=== PATIENT | female | born 1945 | race Caucasian/White ===

== ENCOUNTER → 2018-04-08 | Outpatient (CLI) | payer MEDICARE, MEDICAID ==
[2015-03-31 14:31] VITALS: BMI 26.6
[~2018-04-08] MED LIST: ACE3 PO; ACET-2007 PO; ALP5 PO; ALPR-1 PO; ALPR-445 PO; ALPR-448 PO; ALPR-459 PO; ASC500 PO; ASPI-1471 PO; ASPI-715 PO; ATOR20TA65 PO; CAR3.125 PO; CAR6.25 PO; CEP500 PO; CHOL200074 PO; CHOL400C10 PO; CLO75 PO; DOCU-202 PO; FLAX100042 PO; FLU45SYR17 IM; FURO-1 PO; FURO-45 PO; IBU800 PO; IBUP800T37 PO; LIS10 PO; LISI-362 PO; LISI5TAB25 PO; MOM PO; OMEP-125 PO; OXYGEN INH; PNEU0.5D3 IM; POLY17PO21 PO; POTA10CA61 PO; POTA20TA85 PO; RAN150 PO; RANI-318 PO; ROS10 PO; TRA50 PO; TRAM-420 PO; VITA-324 PO; ZOST19404 SQ; [UNRECOGNIZED DRUG - REMARK]
[2018-04-08 15:08] LABS: PLATELET COUNT, AUTOMATED 182 K/uL (150-450)
[2018-04-08 15:21] LABS: LDL CHOLESTEROL 139 mg/dl
== END ==
LOC: LAB 14:37
PROVIDERS: ATTEND Nurse Practitioner Family
DX: I50.9 Heart failure, unspecified (principal); I10 Essential (primary) hypertension; E78.5 Hyperlipidemia, unspecified
CPT/HCPCS: 36415; 82040; 82247; 82310; 82374; 82435; 82465; 82565; 82947; 83718; 83880; 84075; 84132; 84155; 84295; 84443; 84450; 84460; 84478; 84520; 85025

== ENCOUNTER → 2018-04-26 | Outpatient (CLI) | payer MEDICARE, MEDICAID ==
[2015-03-31 14:31] VITALS: BMI 26.6
[~2018-04-26] MED LIST changes: +RANI-366 PO
== END ==
LOC: LAB 13:20
PROVIDERS: ATTEND Nurse Practitioner Family
DX: I10 Essential (primary) hypertension (principal); I50.9 Heart failure, unspecified
CPT/HCPCS: 36415; 82310; 82374; 82435; 82565; 82947; 83880; 84132; 84295; 84520

== ENCOUNTER → 2018-11-01 | Outpatient (CLI) | payer MEDICARE, MEDICAID ==
[2015-03-31 14:31] VITALS: BMI 26.6
[~2018-11-01] MED LIST changes: +FURO20TA19 PO; +IBUP600T22 PO; +LISI20TA29 PO; +POLY17PO11 PO; -POLY17PO21 PO
[2018-11-01 15:03] LABS: PLATELET COUNT, AUTOMATED 224 K/uL (150-450)
--- NOTE | 2018-11-01 16:30 | RADIOLOGY IMAGING REPORT ---
FACILITY: [facility] PATIENT NAME: Barbara Roberson : 1945 MR: [id number] V: [id number] EXAM DATE: ORDERING PHYSICIAN: OKSANA MUÑOZ TECHNOLOGIST: Location: [facility] Patient: Barbara Roberson : 1945 Visit/Account:[id number] Date of Sevice: 11/01/2018 Exam type: HIP RIGHT History: Right hip pain Comparison: March 23, 2015. Findings: Two views of the right hip are submitted.. There is no evidence of acute fracture-dislocation or sig nificant arthritic change involving the right hip. No lytic or blastic bone lesion is seen IMPRESSION: 1. No acute osteoarticular abnormality the right hip is seen Report Dictated By: Becka Yang MD at 11/01/2018 4:25 PM Report E-Signed By: Becka Yang MD at 11/01/2018 4:26 PM WSN:[email or web address]
--- NOTE | 2018-11-01 16:37 | RADIOLOGY IMAGING REPORT ---
FACILITY: [facility] PATIENT NAME: Barbara Roberson : 1945 MR: [id number] V: [id number] EXAM DATE: ORDERING PHYSICIAN: OKSANA MUÑOZ TECHNOLOGIST: Location: [facility] Patient: Barbara Roberson : 1945 Visit/Account:[id number] Date of Sevice: 11/01/2018 Exam type: CHEST PA LAT History: hypoxia Comparison: February 15, 2015. Findings: There is no evidence of acute appearing infiltrates, pleural effusions or overt pulmonary edema the c ardiac silhouette is normal in size is a gentle scoliosis of the thoracolumbar spine with mild spondy lotic changes IMPRESSION: 1. No acute cardiopulmonary process is seen Report Dictated By: Becka Yang MD at 11/01/2018 4:26 PM Report E-Signed By: Becka Yang MD at 11/01/2018 4:33 PM WSN:[email or web address]
== END ==
LOC: LAB 14:29
PROVIDERS: ATTEND Nurse Practitioner Family
DX: I50.9 Heart failure, unspecified (principal); I10 Essential (primary) hypertension; E78.5 Hyperlipidemia, unspecified; R09.02 Hypoxemia; M25.551 Pain in right hip
CPT/HCPCS: 36415; 71046; 82040; 82247; 82310; 82374; 82435; 82565; 82947; 83880; 84075; 84132; 84155; 84295; 84443; 84450; 84460; 84520; 85025; 85379

== ENCOUNTER 2018-11-02 13:30 | Inpatient (IN) | payer MEDICARE, MEDICAID ==
[~2018-11-02] VITALS: Ht 160 cm; Wt 62.7 kg
[~2018-11-02 13:30] MED LIST changes: -FURO20TA19 PO
[2018-11-02] MEDS ORDERED: ASPIRIN 325 MG TAB PO ONE (13:55)
[2018-11-02 14:06] LABS: PLATELET COUNT, AUTOMATED 213 K/uL (150-450)
--- NOTE | 2018-11-02 14:12 | ER Report ---
History and Physical Time Seen By MD: 14:00 Hx. of Stated Complaint: SOB and cough x 2 weeks, elevated dimer at MD[facility] yesterday; 72% room air sat HPI/ROS CHIEF COMPLAINT: Dyspnea HISTORY OF PRESENT ILLNESS: 73-year-old female with history of CHF, CVA, remote IA, presents with dyspnea times one week. She initially had nonproductive cough, dyspnea on exertion, that she states has actually slightly improved, however she was seen yesterday in her clinic and noted to have a pulse ox of 70%, but refused to come to the emergency department. Today she states that symptoms are slightly improved but she decided to come for further evaluation. She has orthopnea though states that symptoms are improved when she lies on her left side and does not sleep on multiple pillows. She has chronic lower extremity edema but states that this has been well-controlled and is actually improved from normal. She notes breathing restriction though denies chest pressure or pain. She denies fever, chills, nausea, vomiting, abdominal pain, change in medications, sick contacts, recent travel REVIEW OF SYSTEMS: Constitutional: No fever, no chills. Eyes: No discharge. ENT: No sore throat. Cardiovascular: No chest pain, no palpitations. Respiratory: above Gastrointestinal: No abdominal pain, no vomiting. Genitourinary: no dysuria Musculoskeletal: No back pain. Skin: No rashes. Neurological: No headache. Remainder of the 14 system rev: Yes Allergies: Coded Allergies: No Known Allergies (Verified Allergy, Mild, 02/15/15) Home Meds Active Scripts Alprazolam 0.25 Mg Tab (XANAX 0.25 MG TAB) 0.25 Mg Tablet, 1 TAB PO QHS PRN for INSOMNIA, #10 TAB 1 Refill Prov:OKSANA MUÑOZ APRNP-C 11/01/18 Ibuprofen (IBUPROFEN) 600 Mg Tablet, 1 TAB PO BID, #180 TAB 1 Refill Prov:OKSANA MUÑOZ APRNP-C 11/01/18 Lisinopril (LISINOPRIL) 20 Mg Tablet, 1 TAB PO QDAY, #90 TAB 1 Refill Prov:OKSANA MÑUOZ APRN METAL CUT OFF SAW OPERATOR-C 11/01/18 Ranitidine Hcl (ZANTAC) 150 Mg Tablet, 1 TAB PO DAILY, #90 TAB 1 Refill Prov:OKSANA MUÑOZ APRN-C 11/01/18 Carvedilol (CARVEDILOL) 6.25 Mg Tab, 1 TAB PO BID, #180 TAB 1 Refill Prov:OKSANA MUÑOZ APRNP-C 11/01/18 Tramadol Hcl (TRAMADOL HCL) 50 Mg Tablet, 1 TAB PO Q6H PRN for PAIN, #120 TAB 0 Refills Prov:OKSANA MUÑOZ APRN-C 10/12/18 Potassium Chloride (KLOR-CON M20) 20 Meq Tab.er.prt, 1 TAB PO QDAY, #30 TAB 5 Refills Prov:OKSANA MUÑOZ APRN-C 05/04/18 Furosemide (FUROSEMIDE) 20 Mg Tablet, 1.5 TAB PO DAILY, #135 TAB 4 Refills Prov:OKSANA MUÑOZ APRN-C 04/26/18 [Mailcarrier letter] No Conflict Check Prov:OKSANA MUÑOZ APRN-C 04/08/18 Acetaminophen (MAPAP) 325 Mg Tab, 650 MG PO Q6H PRN for PAIN OR FEVER 100 OR GREATER, #0 Prov:HERMELINDA GILL MD 04/03/15 Reported Medications Cholecalciferol (Vitamin D3) (VITAMIN D-3) 2,000 Unit Capsule, 5000 UNIT PO, CAPSULE 03/23/15 Aspirin (ASPIR 81) 81 Mg Tablet.dr, 81 MG PO QDAY, TAB 03/23/15 Discontinued Scripts Lisinopril (LISINOPRIL) 10 Mg Tablet, 1 TAB PO QDAY, #90 TAB 3 Refills Prov:OKSANA MUÑOZ APRNP-C 04/26/18 Ibuprofen (IBUPROFEN) 800 Mg Tablet, 1 TAB PO TIDCF PRN for PAIN, #270 TAB 1 Refill Prov:OKSANA MUÑOZ APRN-C 04/08/18 Reviewed Nurses Notes: Yes Old Medical Records Reviewed: Yes Hx Smoking: Yes Smoking Status: Former Smoker Exposure to Second Hand Smoke?: No Hx Substance Use Disorder: No Hx Alcohol Use: No Constitutional Vital Sign - Last 24 Hours 11/02/18 11/02/18 11/02/18 11/02/18 13:41 13:44 13:45 13:50 Pulse 93 91 Resp 18 B/P (MAP) 178/101 (126) 178/101 Pulse Ox 72 91 O2 Delivery Room Air Nasal Cannula O2 Flow Rate 4 4.0 11/02/18 11/02/18 11/02/18 11/02/18 14:00 14:15 14:30 14:30 Temp 98.2 Pulse 94 Resp 22 8 18 B/P (MAP) 182/99 (126) 161/95 (117) Pulse Ox 92 93 87 O2 Delivery Nasal Cannula O2 Flow Rate 4 11/02/18 11/02/18 11/02/18 11/02/18 14:35 14:50 15:00 15:05 Pulse 91 91 89 Resp 12 14 16 B/P (MAP) 164/95 (118) Pulse Ox 93 93 92 O2 Delivery Nasal Cannula Nasal Cannula Nasal Cannula O2 Flow Rate 4 4 4 11/02/18 11/02/18 11/02/18 11/02/18 15:10 15:25 15:30 15:40 Pulse 86 99 89 Resp 29 17 19 B/P (MAP) 175/126 (142) Pulse Ox 92 93 O2 Delivery Nasal Cannula Nasal Cannula O2 Flow Rate 4 4 11/02/18 11/02/18 11/02/18 11/02/18 15:45 16:00 16:15 16:30 Pulse 97 92 ??? 86 Resp 21 26 22 17 B/P (MAP) 179/86 (117) 179/89 (119) Pulse Ox 89 85 89 O2 Delivery Nasal Cannula Nasal Cannula O2 Flow Rate 3 3 11/02/18 11/02/18 11/02/18 16:45 17:00 17:15 Pulse 95 95 97 Resp 15 B/P (MAP) 177/99 (125) Pulse Ox 80 O2 Delivery Nasal Cannula O2 Flow Rate 3.5 Physical Exam General Appearance: The patient is alert, has no immediate need for airway protection and no signs of toxicity. Eyes: Pupils equal and round no pallor or injection. ENT, Mouth: Mucous membranes are moist. Respiratory: There are no retractions, lungs are clear to auscultation. Pt pres ents with 02 70%, 93% on 4L, not on home 02 Cardiovascular: Regular rate and rhythm. no m/r/g Gastrointestinal: Abdomen is soft and non tender, no masses, bowel sounds normal. Neurological: alert, oriented Skin: Warm and dry, no rashes. Musculoskeletal: Extremities - bilateral lower extremity edema. 2+ pulses DIFFERENTIAL DIAGNOSIS: After history and physical exam differential diagnosis was considered for shortness of breath including but not limited to pulmonary infectious process, COPD, asthma, pulmonary embolus and congestive heart failure.chest pain including but not limited to myocardial ischemia, pericarditis pulmonary embolus, chest wall pain, pleural inflammation and pulmon sai infectious causes. Medical Decision Making Data Points Result Diagram: 11/02/18 1352 11/02/18 1352 Laboratory Hematology Test 11/02/18 13:52 11/02/18 14:28 11/02/18 14:47 Red Blood Count 5.38 M/uL (4.17-5.56) Mean Corpuscular Volume 90.9 fL (80.0-96.0) Mean Corpuscular Hemoglobin 29.5 pg (26.0-33.0) Mean Corpuscular Hemoglobin Concent 32.4 g/dL (32.0-36.0) Red Cell Distribution Width 13.6 % (11.5-14.5) Mean Platelet Volume 10.3 fL (7.2-11.1) Neutrophils (%) (Auto) 69.5 % (39.4-72.5) Lymphocytes (%) (Auto) 19.5 % (17.6-49.6) Monocytes (%) (Auto) 6.4 % (4.1-12.4) Eosinophils (%) (Auto) 3.8 % (0.4-6.7) Basophils (%) (Auto) 0.8 % (0.3-1.4) Nucleated RBC Relative Count (auto) 0.1 /100WBC Neutrophils # (Auto) 6.3 K/uL (2.0-7.4) Lymphocytes # (Auto) 1.8 K/uL (1.3-3.6) Monocytes # (Auto) 0.6 K/uL (0.3-1.0) Eosinophils # (Auto) 0.3 K/uL (0.0-0.5) Basophils # (Auto) 0.1 K/uL (0.0-0.1) Nucleated RBC Absolute Count (auto) 0.01 K/uL Prothrombin Time 13.2 seconds (12.0-14.4) Prothromb Time International Ratio 1.00 Activated Partial Thromboplast Time 29 seconds (23-35) Sodium Level 144 mmol/L (137-145) Potassium Level 3.5 mmol/L (3.5-5.0) Chloride Level 105 mmol/L (98-107) Carbon Dioxide Level 29 mmol/L (22-31) Blood Urea Nitrogen 26 mg/dl (7-18) Creatinine 0.80 mg/dl (0.52-1.04) Glomerular Filtration Rate Calc > 60.0 Random Glucose 101 mg/dl (75-110) Calcium Level 9.9 mg/dl (8.4-10.2) Total Bilirubin 0.6 mg/dl (0.2-1.3) Aspartate Amino Transf (AST/SGOT) 24 U/L (0-35) Alanine Aminotransferase (ALT/SGPT) 27 U/L (0-56) Alkaline Phosphatase 66 U/L (0-126) Troponin I < 0.012 ng/ml B-Type Natriuretic Peptide 852 pg/ml (0-100) Total Protein 7.6 g/dl (6.3-8.2) Albumin 4.2 g/dl (3.5-5.0) Blood Gas Puncture Site Left radial Blood Gas Patient Temperature 98.2 DEGREES Arterial Blood pH 7.40 (7.35-7.45) Arterial Blood Partial Pressure CO2 42 mmHg (32-37) Arterial Blood Partial Pressure O2 70 mmHg (60-80) Arterial Blood HCO3 26 mmol/L (20-26) Arterial Blood Oxygen Saturation 94 % (92-100) Arterial Blood Base Excess 2.0 mmol/L Chris Test Acceptable Oxygen Liters/Minute 37 Urine Color Yellow Urine Clarity Cloudy Urine pH 5.0 pH (4.8-9.5) Urine Specific [place] 1.024 Urine Protein 30 mg/dL (NEGATIVE) Urine Glucose (UA) Negative mg/dL (NEGATIVE) Urine Ketones Trace mg/dL (NEGATIVE) Urine Blood Small (NEGATIVE) Urine Nitrite Negative (NEGATIVE) Urine Bilirubin Negative (NEGATIVE) Urine Urobilinogen 2.0 mg/dL (0.2-1.9) Urine Leukocyte Esterase Trace (NEGATIVE) Urine RBC 30 /HPF (0-2/HPF) Urine WBC 485 /HPF (0-5/HPF) Urine Squamous Epithelial Cells Many /LPF (</=FEW) Urine Bacteria Few /HPF (NONE-FEW) Urine Mucus Few /HPF (NONE-FEW) Chemistry Test 11/02/18 13:52 11/02/18 14:28 11/02/18 14:47 White Blood Count 9.1 k/uL (4.5-11.0) Red Blood Count 5.38 M/uL (4.17-5.56) Hemoglobin 15.8 g/dL (12.0-16.0) Hematocrit 48.9 % (34.0-47.0) Mean Corpuscular Volume 90.9 fL (80.0-96.0) Mean Corpuscular Hemoglobin 29.5 pg (26.0-33.0) Mean Corpuscular Hemoglobin Concent 32.4 g/dL (32.0-36.0) Red Cell Distribution Width 13.6 % (11.5-14.5) Platelet Count 213 K/uL (150-450) Mean Platelet Volume 10.3 fL (7.2-11.1) Neutrophils (%) (Auto) 69.5 % (39.4-72.5) Lymphocytes (%) (Auto) 19.5 % (17.6-49.6) Monocytes (%) (Auto) 6.4 % (4.1-12.4) Eosinophils (%) (Auto) 3.8 % (0.4-6.7) Basophils (%) (Auto) 0.8 % (0.3-1.4) Nucleated RBC Relative Count (auto) 0.1 /100WBC Neutrophils # (Auto) 6.3 K/uL (2.0-7.4) Lymphocytes # (Auto) 1.8 K/uL (1.3-3.6) Monocytes # (Auto) 0.6 K/uL (0.3-1.0) Eosinophils # (Auto) 0.3 K/uL (0.0-0.5) Basophils # (Auto) 0.1 K/uL (0.0-0.1) Nucleated RBC Absolute Count (auto) 0.01 K/uL Prothrombin Time 13.2 seconds (12.0-14.4) Prothromb Time International Ratio 1.00 Activated Partial Thromboplast Time 29 seconds (23-35) Glomerular Filtration Rate Calc > 60.0 Calcium Level 9.9 mg/dl (8.4-10.2) Total Bilirubin 0.6 mg/dl (0.2-1.3) Aspartate Amino Transf (AST/SGOT) 24 U/L (0-35) Alanine Aminotransferase (ALT/SGPT) 27 U/L (0-56) Alkaline Phosphatase 66 U/L (0-126) Troponin I < 0.012 ng/ml B-Type Natriuretic Peptide 852 pg/ml (0-100) Total Protein 7.6 g/dl (6.3-8.2) Albumin 4.2 g/dl (3.5-5.0) Blood Gas Puncture Site Left radial Blood Gas Patient Temperature 98.2 DEGREES Arterial Blood pH 7.40 (7.35-7.45) Arterial Blood Partial Pressure CO2 42 mmHg (32-37) Arterial Blood Partial Pressure O2 70 mmHg (60-80) Arterial Blood HCO3 26 mmol/L (20-26) Arterial Blood Oxygen Saturation 94 % (92-100) Arterial Blood Base Excess 2.0 mmol/L Chris Test Acceptable Oxygen Liters/Minute 37 Urine Color Yellow Urine Clarity Cloudy Urine pH 5.0 pH (4.8-9.5) Urine Specific [place] 1.024 Urine Protein 30 mg/dL (NEGATIVE) Urine Glucose (UA) Negative mg/dL (NEGATIVE) Urine Ketones Trace mg/dL (NEGATIVE) Urine Blood Small (NEGATIVE) Urine Nitrite Negative (NEGATIVE) Urine Bilirubin Negative (NEGATIVE) Urine Urobilinogen 2.0 mg/dL (0.2-1.9) Urine Leukocyte Esterase Trace (NEGATIVE) Urine RBC 30 /HPF (0-2/HPF) Urine WBC 485 /HPF (0-5/HPF) Urine Squamous Epithelial Cells Many /LPF (</=FEW) Urine Bacteria Few /HPF (NONE-FEW) Urine Mucus Few /HPF (NONE-FEW) Coagulation Test 11/02/18 13:52 Prothrombin Time 13.2 seconds Prothromb Time International Ratio 1.00 Activated Partial Thromboplast Time 29 seconds Urinalysis Test 11/02/18 14:47 Urine Color Yellow Urine Clarity Cloudy Urine pH 5.0 pH (4.8-9.5) Urine Specific [place] 1.024 Urine Protein 30 mg/dL (NEGATIVE) Urine Glucose (UA) Negative mg/dL (NEGATIVE) Urine Ketones Trace mg/dL (NEGATIVE) Urine Blood Small (NEGATIVE) Urine Nitrite Negative (NEGATIVE) Urine Bilirubin Negative (NEGATIVE) Urine Urobilinogen 2.0 mg/dL (0.2-1.9) Urine Leukocyte Esterase Trace (NEGATIVE) Urine RBC 30 /HPF (0-2/HPF) Urine WBC 485 /HPF (0-5/HPF) Urine Squamous Epithelial Cells Many /LPF (</=FEW) Urine Bacteria Few /HPF (NONE-FEW) Urine Mucus Few /HPF (NONE-FEW) EKG/Imaging EKG Interpretation 12 lead EKG: Rhythm: normal sinus rhythm [place]: normal QRS: widened ST segments: TWI II, III, avF. Borderline st elevation v1-3 No STEMI; v1-3 elevations c/w LVH no sig change from prior Monitor Interpretation: Normal Sinus Rhythm ED Course/Re-evaluation ED Course Ms. Roberson presents with dyspnea, hypoxia, cough; findings most c/w fluid overload c/w chf, though not in overwhelming pulmonary edema. I evaluated pt's labs/findings; of note she had d dimer drawn yesterday that given age adjusted cutoff is negative (72 in this 73 yr old) and is significantly less than prior draws. She feels minimally symptomatically improved after IV diuresis, and while I considered dispo with home 02, she is reticent to use 02 at home, and refuses to leave with 02 tank. Therefore, she may benefit from further inpt diuresis and optimization of cardiac function. Decision to Disposition Date: Nov 02, 2018 Decision to Disposition Time: 17:51 Depart Departure Latest Vital Signs Vital Signs Date Time Temp Pulse Resp B/P (MAP) Pulse Ox O2 Delivery O2 Flow Rate FiO2 11/02/18 17:15 97 11/02/18 17:00 177/99 (125) 80 Nasal Cannula 3.5 11/02/18 16:45 15 11/02/18 14:30 98.2 Impression: Primary Impression: CHF exacerbation Additional Impression: Hypoxia Condition: Condition Unchanged Disposition: Admitted from ER Referrals: OKSANA MUÑOZ APRN METAL CUT OFF SAW OPERATOR-C (PCP) Problem Qualifiers Primary Impression: CHF exacerbation Heart failure type: unspecified Qualified Codes: I50.9 - Heart failure, unspecified TAIWO DE LUNA MD Nov 02, 2018 14:12
--- NOTE | 2018-11-02 14:34 | RADIOLOGY IMAGING REPORT ---
FACILITY: [facility] PATIENT NAME: Barbara Roberson : 1945 MR: [id number] V: [id number] EXAM DATE: ORDERING PHYSICIAN: TAIWO DE LUNA TECHNOLOGIST: Location: [facility] [place] Patient: Barbara Roberson : 1945 Visit/Account:[id number] Date of Sevice: 11/02/2018 Chest 2 views: HISTORY: Dyspnea. COMPARISON: 11/01/2018 FINDINGS: Frontal and lateral chest: Cardiomediastinal silhouette is within normal limits. There is prominence of the interstitial markings throughout the lungs, significantly more pronounced compared to previous. There is no focal consolidation or pleural effusion. No pneumothorax. Osseous structures are unremarkable for age. IMPRESSION: Increasing prominence of the interstitial markings, differential would include infectious or inflammatory process or possibly mild interstitial edema, clinically correlate. There is no radi ographic evidence of a focal pneumonia or overt congestive heart failure. Report Dictated By: Leah Hendrix MD at 11/02/2018 2:27 PM Report E-Signed By: Leah Hendrix MD at 11/02/2018 2:30 PM WSN:[email or web address]
[2018-11-02] MEDS ORDERED: FUROSEMIDE 20 MG/2 ML VIAL IVP ONE (14:55)
--- NOTE | 2018-11-02 16:13 | EKG ---
FACILITY: [facility] [place] PATIENT NAME: MELY GAUTHIER : [id number] MR: [id number] V: [id number] EXAM DATE: ORDERING PHYSICIAN: TAIWO DE LUNA TECHNOLOGIST: Test Reason : Blood Pressure : / mmHG Vent. Rate : 089 BPM Atrial Rate : 089 BPM P-R Int : 182 ms QRS Dur : 108 ms QT Int : 386 ms P-R-T Axes : 074 039 036 degrees QTc Int : 469 ms Normal sinus rhythm Possible Left atrial enlargement Left ventricular hypertrophy Cannot rule out Inferior infarct , age undetermined R wave progression consistent with an old ant/sep MN vs lead placement Upsloping ST elevation in V2-V3, so cannot rule out acute MN vs repolarization abnormality T flattning/inversion consistent with inferior ischemia Compared to previous: Now with worsening ST elevation of unclear significance Lateral T inversion has resolved Now with T inversion/flattening inferiorly Confirmed by HERMELINDA GILL ([id number]) on 11/02/2018 5:56:32 PM Referred By: Confirmed By:HERMELINDA GILL
[2018-11-02] MEDS ORDERED: ALPRAZolam 0.25 MG TAB PO PRN (17:30)
[2018-11-02 18:07] VITALS: BP 178/95
--- NOTE | 2018-11-02 18:21 | History & Physical ---
History of Present Illness History of Present Illness 73yo female with HFrEF and CAD who came to the ER for SOB. She has had congestion and SOB for the last week. The symptoms are improving. She stopped her own furosemide 2 days ago because she was peeing too much. She saw her PCP, yesterday, for a routine 6 month follow-up and was found to be newly hypoxic on RA and worsening LE edema. She refused to go to the ER. However, agreed to do some workup and had an increased BNP from baseline, mildly elevated D-Dimer (lower than her baseline). Today, she decided to get further evaluation in the ER. She denies worsening LE edema, cp, orthopnea, PND, nausea, vomiting, diarrhea, chills. In the ER, she was given 20mg of IV Lasix. History Problems: (1) HFrEF (heart failure with reduced ejection fraction) Status: Acute (2) HTN (hypertension) Status: Chronic (3) Hyperlipidemia Status: Acute (4) CAD (coronary artery disease) Status: Chronic (5) Chronic back pain Status: Chronic (6) Depression Status: Chronic (7) History of hysterectomy Status: Chronic (8) Former smoker Status: Chronic (9) CVD (cardiovascular disease) (10) History of fusion of cervical spine (11) History of tonsillectomy Home Meds Active Scripts Alprazolam 0.25 Mg Tab (XANAX 0.25 MG TAB) 0.25 Mg Tablet, 1 TAB PO QHS PRN for INSOMNIA, #10 TAB 1 Refill Prov:OKSANA MUÑOZ APRN-C 11/01/18 Ibuprofen (IBUPROFEN) 600 Mg Tablet, 1 TAB PO BID, #180 TAB 1 Refill Prov:OKSANA MUÑOZ APRN-C 11/01/18 Lisinopril (LISINOPRIL) 20 Mg Tablet, 1 TAB PO QDAY, #90 TAB 1 Refill Prov:OKSANA MUÑOZ APRN-C 11/01/18 Ranitidine Hcl (ZANTAC) 150 Mg Tablet, 1 TAB PO DAILY, #90 TAB 1 Refill Prov:OKSANA MUÑOZ APRN-C 11/01/18 Carvedilol (CARVEDILOL) 6.25 Mg Tab, 1 TAB PO BID, #180 TAB 1 Refill Prov:OKSANA MUÑOZ YAYO BAÑUELOSP-C 11/01/18 Tramadol Hcl (TRAMADOL HCL) 50 Mg Tablet, 1 TAB PO Q6H PRN for PAIN, #120 TAB 0 Refills Prov:OKSANA MUÑOZ APRN PUBLIC DEFENDER-C 10/12/18 Potassium Chloride (KLOR-CON M20) 20 Meq Tab.er.prt, 1 TAB PO QDAY, #30 TAB 5 Refills Prov:JOSHUAOKSANA FAIR APRN-C 05/04/18 Furosemide (FUROSEMIDE) 20 Mg Tablet, 1.5 TAB PO DAILY, #135 TAB 4 Refills Prov:OKSANA MUÑOZ YAYO EVERETT-C 04/26/18 [Mailcarrier letter] No Conflict Check Prov:JOSHUAEliseoOKSANA ARIAS YAYO EVERETT-C 04/08/18 Acetaminophen (MAPAP) 325 Mg Tab, 650 MG PO Q6H PRN for PAIN OR FEVER 100 OR GREATER, #0 Prov:HERMELINDA GILL MD 04/03/15 Reported Medications Cholecalciferol (Vitamin D3) (VITAMIN D-3) 2,000 Unit Capsule, 5000 UNIT PO, CAPSULE 03/23/15 Aspirin (ASPIR 81) 81 Mg Tablet.dr, 81 MG PO QDAY, TAB 03/23/15 Discontinued Scripts Lisinopril (LISINOPRIL) 10 Mg Tablet, 1 TAB PO QDAY, #90 TAB 3 Refills Prov:JOSHUAEliseoOKSANA ARIAS YAYO PUBLIC DEFENDER-C 04/26/18 Ibuprofen (IBUPROFEN) 800 Mg Tablet, 1 TAB PO TIDCF PRN for PAIN, #270 TAB 1 Refill Prov:JOSHUAEliseoOKSANA ARIAS YAYO EVERETT-C 04/08/18 Allergies: Coded Allergies: No Known Allergies (Verified Allergy, Mild, 02/15/15) Patient History: FH: dementia MOTHER FH: diabetes mellitus FATHER FH: heart attack MOTHER Other Social/Family Hx Lives alone. Quit smoking in 1996. No alcohol use. Hx Smoking: Yes Smoking Status: Former Smoker Exposure to Second Hand Smoke?: No Caffeine Intake: Coffee Caffeine/Cups Per Day: quit 1 month ago Hx Alcohol Use: No Hx Substance Use Disorder: No Social Drug Use: Never Review of Systems All Systems Reviewed/Normal: Yes, Except as Noted Exam Vital Signs Vital Signs Date Time Temp Pulse Resp B/P (MAP) Pulse Ox O2 Delivery O2 Flow Rate FiO2 11/02/18 15:40 89 19 93 Nasal Cannula 4 11/02/18 15:30 175/126 (142) 11/02/18 14:30 98.2 General Appearance: Alert, Awake, No Acute Distress Neuro: No Gross deficits Eyes: Other ENT: Moist Mucous Membranes Cardiovascular: Regular Rate and Rhythm, No JVD Respiratory: Clear to Auscultation GI: Abd Soft and Non-Tender Extremities: Edema (1-2+ pitting in shins to feet with erythema in ankles in feet while in the dependant position) Medical Decision Making Data Points Result Diagram: 11/02/18 1352 11/02/18 1352 Item Value Date Time B-Type Natriuretic Peptide 852 pg/ml H 11/02/18 1352 Troponin I < 0.012 ng/ml 11/02/18 1352 Total Bilirubin 0.6 mg/dl 11/02/18 1352 Aspartate Amino Transf (AST/SGOT) 24 U/L 11/02/18 1352 Alanine Aminotransferase (ALT/SGPT) 27 U/L 11/02/18 1352 Alkaline Phosphatase 66 U/L 11/02/18 1352 Blood Urea Nitrogen 26 mg/dl H 11/02/18 1352 Creatinine 0.80 mg/dl 11/02/18 1352 Urine Urobilinogen 2.0 mg/dL 11/02/18 1447 Urine Leukocyte Esterase Trace H 11/02/18 1447 Urine RBC 30 /HPF 11/02/18 1447 Urine WBC 485 /HPF 11/02/18 1447 Urine Squamous Epithelial Cells Many /LPF H 11/02/18 1447 Prothromb Time International Ratio 1.00 11/02/18 1352 Arterial Blood pH 7.40 11/02/18 1428 Arterial Blood Partial Pressure CO2 42 mmHg H 11/02/18 1428 Arterial Blood Partial Pressure O2 70 mmHg 11/02/18 1428 Arterial Blood HCO3 26 mmol/L 11/02/18 1428 Arterial Blood Oxygen Saturation 94 % 11/02/18 1428 Arterial Blood Base Excess 2.0 mmol/L 11/02/18 1428 Hemoglobin 15.8 g/dL 11/02/18 1352 Hematocrit 48.9 % H 11/02/18 1352 Platelet Count 213 K/uL 11/02/18 1352 Neutrophils (%) (Auto) 69.5 % 11/02/18 1352 Lymphocytes (%) (Auto) 19.5 % 11/02/18 1352 Blood Urea Nitrogen 22 mg/dl H 11/01/18 1439 Creatinine 0.70 mg/dl 11/01/18 1439 B-Type Natriuretic Peptide 446 pg/ml H 11/01/18 1439 B-Type Natriuretic Peptide 221 pg/ml H 04/26/18 1340 Thyroid Stimulating Hormone (TSH) 3.30 uIU/ml 11/01/18 1439 D-Dimer Quantitative (PE/DVT) 0.72 ug/ml H 11/01/18 1439 EKG / Imaging EKG Interpretation Vent. Rate : 089 BPM Atrial Rate : 089 BPM P-R Int : 182 ms QRS Dur : 108 ms QT Int : 386 ms P-R-T Axes : 074 039 036 degrees QTc Int : 469 ms Normal sinus rhythm Possible Left atrial enlargement Left ventricular hypertrophy Cannot rule out Inferior infarct , age undetermined R wave progression consistent with an old ant/sep AZ vs lead placement Upsloping ST elevation in V2-V3, so cannot rule out acute AZ vs repolarization abnormality T flattning/inversion consistent with inferior ischemia Compared to previous: Now with worsening ST elevation of unclear significance Lateral T inversion has resolved Now with T inversion/flattening inferiorly Confirmed by HERMELINDA GILL ([id number]) on 11/02/2018 5:56:32 PM Imaging CXR - Increasing prominence of the interstitial markings, differential would include infectious or inflammatory process or possibly mild interstitial edema, clinically correlate. There is no radiographic evidence of a focal pneumonia or overt congestive heart failure. Assessment and Plan Problems: (1) HFrEF (heart failure with reduced ejection fraction) Status: Acute Assessment & Plan: She presented with a week of increased SOB, hypoxia and significantly elevated BNP. Likely, she has been slowly worsening with heart failure symptoms that have been exacerbated by hypoxia and ibuprofen use. She had an EF of 28%, mod to severe TR, moderate MR and severe pulmonary hypertension by echo in 2009. She is chronically on Coreg, Lisinopril and Lasix. Coreg and Lisinopril will be continued. She received 20mg of IV Lasix in the ER. Will give 20mg IV twice daily starting tomorrow. She will get an echo tomorrow, be placed on a heart failure diet, watched on telemetry and get daily weights. (2) Chronic back pain Status: Chronic Assessment & Plan: Continue chronic tramadol. Will hold chronic ibuprofen because of the heart failure exacerbation. (3) HTN (hypertension) Status: Chronic Assessment & Plan: Continue chronic Coreg and Lisinopril. BP high. However, she will be getting IV Lasix, so will hold off on titration or addition of medications. Copies to: OKSANA MUÑOZ APRN PUBLIC DEFENDER-C ; Venous Thromboembolism Antithrombotics Is Pt On Any Antithrombotics?: No Heart Failure Is Patient on ARIELA Inhibitor?: Yes Is Patient on Beta Purvi?: Yes Admission Weight: 143 Exam Sepsis Risk: No Definite Risk Problem Qualifiers (1) HFrEF (heart failure with reduced ejection fraction): Heart failure chronicity: acute Qualified Codes: I50.21 - Acute systolic (congestive) heart failure HERMELINDA GILL MD Nov 02, 2018 18:21
[2018-11-02] MEDS ORDERED: FURO20TA19 PO (18:24)
[2018-11-02] MEDS: traMADol 50 MG TAB PO PRN (19:24)
[2018-11-02 21:03] VITALS: BP 167/86
[2018-11-02] MEDS: RANITIDINE HCL 150 MG TAB PO SCH (21:06)
[2018-11-02] MEDS: CARVEDILOL 6.25 MG TAB PO SCH (21:06)
[2018-11-02 23:37] VITALS: BP 152/74
[2018-11-03 02:14] VITALS: BP 158/102
[2018-11-03 06:18] LABS: PLATELET COUNT, AUTOMATED 170 K/uL (150-450)
[2018-11-03] MEDS: traMADol 50 MG TAB PO PRN ×2 (06:35→12:50)
[2018-11-03 07:10] VITALS: BP 176/85
[2018-11-03] MEDS ORDERED: NS(*) 0.9% 500 ML BAG 500 ML ONE (08:34)
[2018-11-03] MEDS: KCL (*) 20 MEQ/100 ML PREMIX 100 ML IV SCH ×2 (08:35→13:06)
[2018-11-03] MEDS: CARVEDILOL 6.25 MG TAB PO SCH (08:37)
[2018-11-03] MEDS: FUROSEMIDE 20 MG/2 ML VIAL IVP SCH ×2 (08:37→14:12)
[2018-11-03] MEDS: RANITIDINE HCL 150 MG TAB PO SCH (08:37)
[2018-11-03] MEDS ORDERED: LISINOPRIL 20 MG TAB PO SCH (09:00)
[2018-11-03] MEDS ORDERED: POTASSIUM CHL 20 MEQ TABCR PO SCH (09:00)
[2018-11-03] MEDS ORDERED: ASPIRIN 81 MG CHEW PO SCH (09:00)
[2018-11-03] MEDS ORDERED: ENOXAPARIN 40 MG/0.4ML SYR SC SCH (09:00)
--- NOTE | 2018-11-03 10:17 | Hospitalist Progress Note ---
Subjective Progress Notes Subjective This patient was admitted for heart failure. She had no acute events overnight. Patient Complains of: Cardiovascular: No: Chest Pain Respiratory: No: Shortness of Breath Physical Exam Vital Signs Date Time Temp Pulse Resp B/P (MAP) Pulse Ox O2 Delivery O2 Flow Rate FiO2 11/03/18 07:10 97.9 86 20 176/85 (115) 91 Nasal Cannula 2.5 Intake and Output 11/03/18 07:00 Output Total 600 ml Balance -600 ml Output Urine Total 600 ml # Voids 8 Cardiovascular: Regular Rate and Rhythm Respiratory: Clear to Auscultation Extremities: No Edema Result Diagram: 11/03/18 0542 11/03/18541 Monitor Interpretation: Normal Sinus Rhythm Assessment and Plan Problems: (1) HFrEF (heart failure with reduced ejection fraction) Status: Acute Assessment & Plan: She presented with a week of increased SOB, hypoxia and a significantly elevated BNP. She had an EF of 28%, by echo in 2009. She is chronically on Coreg, Lisinopril and Lasix. Coreg and Lisinopril have been continued. She received IV Lasix overnight. A repeat echocardiogram is pending. (2) Chronic back pain Status: Chronic Assessment & Plan: She is on chronic treatment with tramadol. She has been advised not to continue ibuprofen secondary to her heart failure. (3) HTN (hypertension) Status: Chronic Assessment & Plan: She may require further titration of her blood pressure medications at follow up. (4) Hypokalemia Assessment & Plan: She did develop hypokalemia after receiving Lasix. She is currently receiving a K-ridder. Heart Failure Is Patient on ARIELA Inhibitor?: Yes Is Patient on Beta Purvi?: Yes Admission Weight: 143 Exam Sepsis Risk: No Definite Risk Problem Qualifiers (1) HFrEF (heart failure with reduced ejection fraction): Heart failure chronicity: acute Qualified Codes: I50.21 - Acute systolic (congestive) heart failure (2) HTN (hypertension): Hypertension type: essential hypertension Qualified Codes: I10 - Essential (primary) hypertension RICARDA WALLACE DO Nov 03, 2018 10:17
[2018-11-03 11:26] VITALS: BP 135/71
--- NOTE | 2018-11-03 12:26 | NUR ---
Physical Therapy Impression Pt demonstrated safety with functional mobility and is at her baseline. Pt ambulated on 3 L O2 with SO2 maintaining at 88%. Pt safe for DC when medically appropriate. Pt does not require skilled PT at this time. Physical Therapy Goals Patient's Goals
--- NOTE | 2018-11-03 14:02 | NUR ---
Occupational Therapy Impression Reports no concerns/needs/questions with regards to discharge home. Independent bed mobility. Independent toileting. Independent grooming standing sinkfront. Independent LB dressing. Mod (I) ambulation in hallway with 4WW. SpO2 >88% on 3L. No further skilled OT needs at this time. Pt safe for discharge when medically appropriate. Occupational Therapy Goals Patient's Goal
[2018-11-03 14:04] VITALS: Ht 160 cm; Wt 62.7 kg
--- NOTE | 2018-11-03 14:31 | Medical Nutrition Therapy ---
Nutrition Anthropometrics Height (Inches): 63.00 Height (Calculated Centimeters: 160.230780 Weight (Pounds): 138 Weight (Calculated Kilograms): 62.709 BMI: 24.5 Zach Nutrition Score: Adequate Zach Nutrition Risk Score: 18 Dietary Referral Nutrition Risk Factors: Nutrition Risk Comment: Physical Findings Physical Appearance: BMI WNR Skin Appearance Skin Appearance: Edema Edema Location Modifier: Left Edema Location: Lower Extremity Type of Edema: Degree of Edema: 1+ Gastrointestinal Symptoms GI Symtoms: Tube Present: Bowel Sounds: Recent Bowel Pattern: Stool Characteristics: Nutritional Diagnosis Nutritional Risk Acuity 2: CHF w/Complication Nutritional Risk Acuity 3: Fair Appetite Past Medical History: CHF, CAD, depression Nutritional Acuity: 2-Moderate Nutrition Diagnosis: Decreased Nutrient Needs Nutrition Etiology: Physiological Causes Nutrition Problem/Etiology/Sym: Decreased Na and fluid needs r/t dx CHF AEB BNP 494, 1-2+ edema LE Energy Requirement: 1725 (M- St J) Protein Requirement: 63 (1gm/kg) Fluid Requirement: 2000 Nutrition Intervention: Cont diet as ordered, Encourage intake Drug: Diuretics Drug/Nutrition Recommendations: Patient Taking K+ Additional Diet Restrictions: OFFER NUTR SUPPLMENT IF INTAKE < 50% Nutrition Monitoring & Eval Nutrition Goals: Eat 75-100% Meal RD Patient Assessment Time: [address] Assessment Type: RD Assessment Patient Nutrition Acuity: 2-Moderate Follow Up Date: Nov 07, 2018 Nutritional Comment: 11/03 Pt admitted with CHF dx. Pt on CHF diet and eating 25-75% of meals. Will offer nutr supplment if intake < 50%. Pt is on K+ depleting duiretic and K+ is low at 3.1. Pt is recieving K+ supplement. Nutr significant labs: alb 3.8, BNP 494. Pt has non-pitting to 1+ edema LE. Anticipate wt loss when edema resolved. BMI is within desired range. Will cont to monitor and encourage intake. JT RANDHAWA Nov 03, 2018 14:31
--- NOTE | 2018-11-03 16:37 | NUR ---
Room air saturation is 79%. Expressed to patient that it would be beneficial for her to have home O2. Pt adamantly refuses home oxygen and states that she "feels pretty good," "doesn't think she needs it," "doesn't want anyone coming to her house," and "I don't want it." I attempted to tell her the benefits of home oxygen and how it could make her feel even better, Pt continues to refuse. Reported this information to Dr. Skelton.
--- NOTE | 2018-11-03 16:45 | Hospitalist Depart ---
Discharge Summary Reason for Hosp/Final Diag: (1) HFrEF (heart failure with reduced ejection fraction) Status: Acute Hospital Course & Plan: She presented with a week of increased SOB, hypoxia and a significantly elevated BNP. She had an EF of 28%, by echo in 2009. She is chronically on Coreg, Lisinopril and Lasix. Coreg and Lisinopril. She responded well to Lasix, and is now asymptomatic. A repeat echocardiogram is pending. (2) Chronic back pain Status: Chronic Hospital Course & Plan: She is on chronic treatment with tramadol. She has been advised not to continue ibuprofen secondary to her heart failure. (3) HTN (hypertension) Status: Chronic Hospital Course & Plan: She may require further titration of her blood pressure medications at follow up. (4) Hypokalemia Hospital Course & Plan: She did develop hypokalemia after receiving Lasix. It resolved with supplementation. (5) Hypoxemia Hospital Course & Plan: She has consistently shown a decreased oxygen saturation while on room air. We did make arrangements for home oxygen, but she has refused treatment. Departure Latest Vital Signs Vital Signs 11/03/18 11/03/18 11:26 14:17 Temp 97.8 Pulse 86 Resp 24 B/P (MAP) 135/71 (92) Pulse Ox 89 O2 Delivery Nasal Cannula O2 Flow Rate 2.0 Weight (Pounds): 138 Weight (Ounces): 4.0 Result Diagram: 11/03/18 0542 11/03/18 1558 Condition: Improved Discharge: Home, Self Care Discharge Instructions Home Meds Active Scripts Alprazolam 0.25 Mg Tab (XANAX 0.25 MG TAB) 0.25 Mg Tablet, 1 TAB PO QHS PRN for INSOMNIA, #10 TAB 1 Refill Prov:OKSANA MUÑOZ APRN-C 11/01/18 Lisinopril (LISINOPRIL) 20 Mg Tablet, 1 TAB PO QDAY, #90 TAB 1 Refill Prov:OKSANA MUÑOZ APRN-C 11/01/18 Ranitidine Hcl (ZANTAC) 150 Mg Tablet, 1 TAB PO DAILY, #90 TAB 1 Refill Prov:OKSANA MUÑOZ APRN-C 11/01/18 Carvedilol (CARVEDILOL) 6.25 Mg Tab, 1 TAB PO BID, #180 TAB 1 Refill Prov:OKSANA MUÑOZ APRN-C 11/01/18 Tramadol Hcl (TRAMADOL HCL) 50 Mg Tablet, 1 TAB PO Q6H PRN for PAIN, #120 TAB 0 Refills Prov:OKSANA MUÑOZ APRN-C 10/12/18 Potassium Chloride (KLOR-CON M20) 20 Meq Tab.er.prt, 1 TAB PO QDAY, #30 TAB 5 Refills Prov:OKSANA MUÑOZ APRN-C 05/04/18 [Mailcarrier letter] No Conflict Check Prov:OKSANA MUÑOZ APRN-C 04/08/18 Reported Medications Furosemide (LASIX) 20 Mg Tablet, 0.5 TAB PO TID, TAB 11/02/18 Cholecalciferol (Vitamin D3) (VITAMIN D-3) 2,000 Unit Capsule, 5000 UNIT PO, CAPSULE 03/23/15 Aspirin (ASPIR 81) 81 Mg Tablet.dr, 81 MG PO QDAY, TAB 03/23/15 Discontinued Scripts Ibuprofen (IBUPROFEN) 600 Mg Tablet, 1 TAB PO BID, #180 TAB 1 Refill Prov:OKSANA MUÑOZ APRN-C 11/01/18 Furosemide (FUROSEMIDE) 20 Mg Tablet, 1.5 TAB PO DAILY, #135 TAB 4 Refills Prov:OKSANA MUÑOZ APRN-C 04/26/18 Acetaminophen (MAPAP) 325 Mg Tab, 650 MG PO Q6H PRN for PAIN OR FEVER 100 OR GREATER, #0 Prov:HERMELINDA GILL MD 04/03/15 Lisinopril (LISINOPRIL) 10 Mg Tablet, 1 TAB PO QDAY, #90 TAB 3 Refills Prov:OKSANA MUÑOZ APRN-C 04/26/18 Ibuprofen (IBUPROFEN) 800 Mg Tablet, 1 TAB PO TIDCF PRN for PAIN, #270 TAB 1 Refill Prov:OKSANA MUÑOZ APRN-C 04/08/18 Diet: Regular Activity: As Tolerated Copies to: OKSANA MUÑOZ APRN ; Venous Thromboembolism Antithrombotics Is Pt On Any Antithrombotics?: No Heart Failure Is Patient on ARIELA Inhibitor?: Yes Is Patient on Beta Purvi?: Yes Admission Weight: 143 Problem Qualifiers (1) HFrEF (heart failure with reduced ejection fraction): Heart failure chronicity: acute Qualified Codes: I50.21 - Acute systolic (congestive) heart failure (2) HTN (hypertension): Hypertension type: essential hypertension Qualified Codes: I10 - Essential (primary) hypertension RICARDA WALLACE DO Nov 03, 2018 16:45
[2018-11-06] MEDS ORDERED: INFLUENZA VIRUS VAC 0.5ML SYR IM ONLY ONE (09:00)
== END 2018-11-03 17:02 | disposition home or self-care (01) | DRG 293 ==
LOC: ER 13:48 → MED 17:24
PROVIDERS: ADMIT Internal Medicine; ATTEND Internal Medicine
DX: I11.0 Hypertensive heart disease with heart failure (principal); I50.23 Acute on chronic systolic (congestive) heart failure; G89.29 Other chronic pain; R09.02 Hypoxemia; I25.10 Atherosclerotic heart disease of native coronary artery without angina pectoris; E78.5 Hyperlipidemia, unspecified; E87.6 Hypokalemia; T50.1X5A Adverse effect of loop [high-ceiling] diuretics, initial encounter; F32.9 Major depressive disorder, single episode, unspecified; I25.2 Old myocardial infarction; Y92.230 Patient room in hospital as the place of occurrence of the external cause; Z90.710 Acquired absence of both cervix and uterus; Z98.1 Arthrodesis status; Z86.73 Personal history of transient ischemic attack (TIA), and cerebral infarction without residual deficits; Z87.891 Personal history of nicotine dependence
CPT/HCPCS: 36415; 36600; 71046; 81001; 82040; 82247; 82310; 82374; 82435; 82565; 82803; 82947; 83880; 84075; 84132; 84155; 84295; 84443; 84450; 84460; 84484; 84520; 85025; 85379; 85610; 85730; 93005; 93306; 96374; 97161; 97165; 99284; J1650; J1940; J3480; J7040

== ENCOUNTER → 2018-11-11 | Outpatient (CLI) | payer MEDICARE, MEDICAID ==
[2018-11-03 14:04] VITALS: BMI 24.4
[~2018-11-11] MED LIST changes: +FURO20TA19 PO; +POTA10CA40 PO; +TRAZ50TA34 PO
== END ==
LOC: LAB 13:43
PROVIDERS: ATTEND Nurse Practitioner Family
DX: I50.9 Heart failure, unspecified (principal); I10 Essential (primary) hypertension
CPT/HCPCS: 36415; 82040; 82247; 82310; 82374; 82435; 82565; 82947; 83880; 84075; 84132; 84155; 84295; 84450; 84460; 84520

== ENCOUNTER → 2018-12-02 | Outpatient (CLI) | payer MEDICARE, MEDICAID ==
[2018-11-03 14:04] VITALS: BMI 24.4
[~2018-12-02] MED LIST changes: +FLU180SY11 IM; +PNEI IM; +POTA-23 PO
== END ==
LOC: LAB 14:45
PROVIDERS: ATTEND Nurse Practitioner Family
DX: I50.9 Heart failure, unspecified (principal); I10 Essential (primary) hypertension
CPT/HCPCS: 36415; 82310; 82374; 82435; 82565; 82947; 83880; 84132; 84295; 84520

== ENCOUNTER → 2019-06-03 | Outpatient (CLI) | payer MEDICARE, MEDICAID ==
[2018-11-03 14:04] VITALS: BMI 24.4
[~2019-06-03] MED LIST changes: +CARV12.578 PO; +CARV25TA78 PO; -OMEP-125 PO; +OMEP-126 PO; -RANI-366 PO; +RANI-54 PO; -ROS10 PO; +ROSU10TA PO; -TRAZ50TA34 PO; +TRAZ50TA52 PO
[2019-06-03 15:42] LABS: PLATELET COUNT, AUTOMATED 190 K/uL (150-450)
[2019-06-03 15:52] LABS: LDL CHOLESTEROL 163 mg/dl
== END ==
LOC: LAB 15:22
PROVIDERS: ATTEND Nurse Practitioner Family
DX: I11.0 Hypertensive heart disease with heart failure (principal); I50.9 Heart failure, unspecified; E78.5 Hyperlipidemia, unspecified
CPT/HCPCS: 36415; 82040; 82247; 82310; 82374; 82435; 82465; 82565; 82947; 83718; 83880; 84075; 84132; 84155; 84295; 84450; 84460; 84478; 84520; 85025